=== PATIENT | male | born 1950 | race Two or more races ===

== ENCOUNTER 2020-09-07 18:20 | Inpatient (IN) | payer OTHER ==
[~2020-09-07] VITALS: Ht 162.6 cm; Wt 75.0 kg
[2020-09-07] MEDS ORDERED: SODIUM CHLORIDE FLUSH 10ML SYR IVF ONE (18:30)
--- NOTE | 2020-09-07 18:43 | NUR ---
to and from ct. back, daughter at bedside. vss. per cait: pt's father of covid, he was exposed. having trouble walking/talking, more fatigue, not acting himself. got aspirin by family 162 mg 1.5 hours prior to this. md aware of temp plan for straight cath ua. as
--- NOTE | 2020-09-07 18:55 | NUR ---
REPORT TO RODO BACON.
[2020-09-07] MEDS ORDERED: ASPI-515 PO (18:57)
[2020-09-07] MEDS ORDERED: ACETAMINOPHEN 650 MG SUPP PR PRN (19:00)
--- NOTE | 2020-09-07 19:02 | NUR ---
per daughter pt barely voiding, c/o low back pain, sts is drinking fluids at home. as
[2020-09-07] MEDS ORDERED: ACETAMINOPHEN 325 MG SUPP ONE (19:09)
[2020-09-07 19:21] LABS: BASOPHILS % (AUTO) 1 % (0-1); EOSINOPHILS % (AUTO) 0 % (1-7); LYMPHOCYTES % (AUTO) 14 % (22-44); MEAN CORPUSCULAR HEMOGLOBIN 30.3 pg (27.5-34.5); MEAN CORPUSCULAR HGB CONC 34.4 g/dL (33.2-36.2); MEAN PLATELET VOLUME 11.7 fL (7.4-10.4); MONOCYTES % (AUTO) 11 % (2-9); NEUTROPHILS % (AUTO) 74 % (42-75); PLATELET COUNT 106 x10^3/uL (130-400); RED BLOOD COUNT 5.33 x10^6/uL (4.38-5.82); RED CELL DISTRIBUTION WIDTH 12.5 % (9.4-14.8)
[2020-09-07 19:28] LABS: INTERNATIONAL NORMALIZED RATIO 1.06 (0.93-1.1); PROTHROMBIN TIME 11.2 Seconds (9.6-11.5)
[2020-09-07 19:29] LABS: ALANINE AMINOTRANSFERASE 62 U/L (12-78); ALBUMIN 3.2 g/dL (3.4-5.0); ANION GAP 9 mmol/L (5-15); CALCIUM 8.8 mg/dL (8.5-10.1); CHLORIDE 100 mmol/L (98-107); CREATININE 1.08 mg/dL (0.7-1.3); TRIGLYCERIDES 127 mg/dL (50-200)
[2020-09-07 19:32] LABS: ALKALINE PHOSPHATASE 104 U/L (45-117); BILIRUBIN,TOTAL 1.1 mg/dL (0.2-1.0); TOTAL PROTEIN 8.3 g/dL (6.4-8.2)
[2020-09-07 19:35] LABS: MICROSCOPIC AUTO
--- NOTE | 2020-09-07 19:35 | NUR ---
DAUGHTER SPOKE TO HER SISTER AND PT HAS BEEN VOIDING FREQUENTLY AND HAS BEEN HAVING INCONTINENCE DUE TO URGENCY. PT STRAIGHT CATHED AND 400 MLS WAS DRAINED. PT MEDICATED WITH TYLENOL AND SAMPLE WALKED TO LAB. PTS BP IS ELEVATED. PER FAMILY THAT IS NORMAL BUT HE DOESNT TAKE MEDICATION FOR IT. PT RESTING WITH NO NEEDS AT THIS TIME. CALL LIGHT IN REACH
[2020-09-07 20:10] LABS: MD MORPH REVIEW ONLY
[2020-09-07 20:11] LABS: <PLATELET ESTIMATE> DECREASED; <RBC MORPHOLOGY> NORMAL; LARGE PLATELETS 1+
--- NOTE | 2020-09-07 20:28 | NUR ---
UPDATED PT AND FAMILY THAT PT WILL GO FOR CT. LABS STILL PENDING. PT RESTING IN NAD. CALL LIGHT IN REACH
[2020-09-07] MEDS ORDERED: CEFTRIAXONE PMX 1GM/50ML 50 ML ONE (21:22)
[2020-09-07] MEDS ORDERED: hydrALAzine 20 MG/ML, 1ML IV ONE (21:30)
[2020-09-07] MEDS ORDERED: AZITHROMYCIN 500 MG in SODIUM CHLORIDE 0.9% 250 ML IV ONE (21:30)
[2020-09-07] MEDS ORDERED: CEFTRIAXONE PMX 1GM/50ML 50 ML IV ONE (21:30)
[2020-09-07] MEDS ORDERED: SODIUM CHLORIDE 0.9%, 500ML IVBOLUS ONE (21:30)
--- NOTE | 2020-09-07 21:46 | NUR ---
REPORT FROM RODO BACON ASSUMING CARE AT THIS TIME
[2020-09-07] MEDS ORDERED: OMNIPAQUE 350 MG/ML, 100ML BOTTLE ONE (21:51)
--- NOTE | 2020-09-07 21:58 | NUR ---
PT MEDICATED. ABX RUNNING. REPORT TO KEVIN BACON.
--- NOTE | 2020-09-07 21:59 | NUR ---
DAUGHTER RUBIO PHONE #[phone] DAUGHTER ANKITA PHONE # [phone]
--- NOTE | 2020-09-07 22:04 | NUR ---
COVID SWAB COMPLETED AND WALKED TO LAB AT THIS TIME. PT RESTING ON KIM BARCENAS
--- NOTE | 2020-09-07 22:45 | NUR ---
ZITHROMAX STARTED AT THIS TIME. PT RESTING ON GURNEY NADN, RESP EVEN AND UNLABORED EYES CLOSED, NO NEEDS AT THIS TIME
[2020-09-07] MEDS ORDERED: GUAIFENESIN/DM 200-20MG, 10ML UDC PO PRN (23:00)
[2020-09-07] MEDS ORDERED: DOCUSATE 100 MG CAPSULE PO PRN (23:00)
[2020-09-07] MEDS: HEPARIN 5,000 UNITS/ML, 1ML SQ SCH (23:00)
--- NOTE | 2020-09-08 00:33 | NUR ---
PT RESTING ON KIM BARCENAS NO NEEDS AT THIS TIME
--- NOTE | 2020-09-08 01:11 | NUR ---
REPORT TO LI BACON TRANSFER OF CARE AT THIS TIME
--- NOTE | 2020-09-08 02:39 | NUR ---
TASK RN: PT RESTING ON KIM RESP NICHOLAS AND UNLABORED NARINDER
[2020-09-08 04:08] VITALS: BP 211/95
[2020-09-08] MEDS: ENALAPRILAT 1.25 MG/ML, 2ML IVPush PRN (04:48)
[2020-09-08 05:18] LABS: BASOPHILS % (AUTO) 1 % (0-1); EOSINOPHILS % (AUTO) 0 % (1-7); LYMPHOCYTES % (AUTO) 31 % (22-44); MEAN CORPUSCULAR HEMOGLOBIN 30.5 pg (27.5-34.5); MEAN CORPUSCULAR HGB CONC 34.5 g/dL (33.2-36.2); MEAN PLATELET VOLUME 12.1 fL (7.4-10.4); MONOCYTES % (AUTO) 11 % (2-9); NEUTROPHILS % (AUTO) 57 % (42-75); PLATELET COUNT 105 x10^3/uL (130-400); RED BLOOD COUNT 5.66 x10^6/uL (4.38-5.82); RED CELL DISTRIBUTION WIDTH 12.7 % (9.4-14.8)
[2020-09-08 05:30] LABS: ALANINE AMINOTRANSFERASE 57 U/L (12-78); ANION GAP 10 mmol/L (5-15); CALCIUM 8.9 mg/dL (8.5-10.1); CHLORIDE 104 mmol/L (98-107); CREATININE 0.85 mg/dL (0.7-1.3)
[2020-09-08 05:33] LABS: ALKALINE PHOSPHATASE 101 U/L (45-117); BILIRUBIN,TOTAL 0.8 mg/dL (0.2-1.0); TOTAL PROTEIN 8.2 g/dL (6.4-8.2)
[2020-09-08 05:46] VITALS: BP 155/89
[2020-09-08 05:48] LABS: MD NO
[2020-09-08] MEDS ORDERED: HEPARIN 5,000 UNITS/ML, 1ML ONE ×2 (06:15→15:55)
[2020-09-08] MEDS: HEPARIN 5,000 UNITS/ML, 1ML SQ SCH ×3 (06:28→23:17)
[2020-09-08] MEDS ORDERED: ASPIRIN 81 MG TABLET EC ONE (07:48)
--- NOTE | 2020-09-08 08:30 | NUR ---
ASSISTED PT TO HOSPITAL BED FOR COMFORT, CLEANED UP PT.
[2020-09-08] MEDS: ASPIRIN 81 MG TABLET EC PO SCH (08:53)
[2020-09-08] MEDS: INSULIN LISPRO 100 UNITS/ML, PEN SQ-INSULIN SCH ×4 (08:53→21:25)
--- NOTE | 2020-09-08 09:04 | NUR ---
MEDICATED PER ORDERS, BS 260, PT ON HOSPITAL BED, CLEANED, NEW GOWN, VSS.
--- NOTE | 2020-09-08 10:00 | NUR ---
PT COMPLETED BREAKFAST TRAY 100%. VOIDED 200 ML IN URINAL , VSS
--- NOTE | 2020-09-08 11:12 | NUR ---
PT GIVEN WATER AND WARM BLANKET, VSS.
--- NOTE | 2020-09-08 12:38 | NUR ---
LUNCH PROVIDED, ADMIN MEDS PER ORDER
[2020-09-08] MEDS ORDERED: ACETAMINOPHEN 325 MG TABLET ONE (17:32)
[2020-09-08] MEDS: ACETAMINOPHEN 325 MG TABLET PO PRN (17:46)
--- NOTE | 2020-09-08 18:47 | NUR ---
Desiree jarquin in ED - 09/08/20 at 1849 by STAR BEDSIDE REPORT FROM PERLITA BACON, PT CARE TRANSFERRED AT THIS TIME.
--- NOTE | 2020-09-08 18:49 | NUR ---
BEDSIDE REPORT FROM JUANA BACON, PT CARE TRANSFERRED AT THIS TIME. PREVIOUS NOTE ON INCORRECT PT
--- NOTE | 2020-09-08 19:12 | NUR ---
PT RESTING ON GURNEY, APPEARS COMFORTABLE, BLANKETS CLEANED AND REARRANGED, NAD, PROVIDED MEAL TO EAT FOR DINNER, DENIES ADDITIONAL QUESTIONS AT THIS TIME, BED IN LOWEST, CALL LIGHT ON LAP, WATCHING TV. WCTM. WAITING FOR ADMIT BED.
[2020-09-08] MEDS ORDERED: AZITHROMYCIN 500 MG TABLET ONE (19:52)
[2020-09-08] MEDS ORDERED: IBUPROFEN 200 MG TABLET ONE (19:52)
[2020-09-08] MEDS ORDERED: CEFTRIAXONE PMX 1GM/50ML 50 ML ONE (19:52)
[2020-09-08] MEDS ORDERED: IBUPROFEN 200 MG TABLET PO PRN (20:00)
--- NOTE | 2020-09-08 20:17 | NUR ---
REPORT CALLED TO ARACELI BACON, PT CARE TO BE TRANSFERRED UPON ARRIVAL TO THE FLOOR. PT NAD, MEDICATED PER DEC FOR FEVER, APPEARS COMFORTABLE. WCTM.
[2020-09-08] MEDS ORDERED: AZITHROMYCIN 250 MG TABLET ONE (20:33)
[2020-09-08] MEDS: AZITHROMYCIN 250 MG TABLET PO SCH (20:34)
[2020-09-08] MEDS: CEFTRIAXONE PMX 1GM/50ML 50 ML IV SCH (20:35)
[2020-09-08 21:57] VITALS: BP 148/84
[2020-09-09] MEDS ORDERED: POTASSIUM CHLORIDE 20 MEQ TAB.ER.PRT PO ONE
[2020-09-09 01:12] VITALS: BP 143/88
[2020-09-09 02:09] LABS: RAPID INFLUENZA A Negative (Negative); RAPID INFLUENZA B Negative (Negative)
[2020-09-09 04:12] LABS: BASOPHILS % (AUTO) 1 % (0-1); EOSINOPHILS % (AUTO) 1 % (1-7); LYMPHOCYTES % (AUTO) 28 % (22-44); MEAN CORPUSCULAR HEMOGLOBIN 30.5 pg (27.5-34.5); MEAN CORPUSCULAR HGB CONC 34.5 g/dL (33.2-36.2); MEAN PLATELET VOLUME 12.2 fL (7.4-10.4); MONOCYTES % (AUTO) 10 % (2-9); NEUTROPHILS % (AUTO) 60 % (42-75); PLATELET COUNT 108 x10^3/uL (130-400); RED BLOOD COUNT 4.97 x10^6/uL (4.38-5.82); RED CELL DISTRIBUTION WIDTH 12.5 % (9.4-14.8)
[2020-09-09 04:17] LABS: MD NO
[2020-09-09 04:21] LABS: ANION GAP 7 mmol/L (5-15); CALCIUM 8.8 mg/dL (8.5-10.1); CHLORIDE 101 mmol/L (98-107); CREATININE 1.01 mg/dL (0.7-1.3)
[2020-09-09] MEDS ORDERED: THIAMINE 100MG TABLET PO ONE (07:00)
[2020-09-09 07:48] VITALS: BP 150/83
[2020-09-09] MEDS: INSULIN LISPRO 100 UNITS/ML, PEN SQ-INSULIN SCH ×4 (07:59→21:23)
[2020-09-09] MEDS: HEPARIN 5,000 UNITS/ML, 1ML SQ SCH ×3 (07:59→22:45)
[2020-09-09] MEDS: ASCORBIC ACID 500 MG TABLET PO SCH ×2 (08:00→16:02)
[2020-09-09] MEDS: ZINC SULFATE 220 MG CAPSULE PO SCH (08:00)
[2020-09-09] MEDS: POTASSIUM CHLORIDE 20 MEQ PACKET PO SCH ×3 (08:00→16:02)
[2020-09-09] MEDS: ASPIRIN 81 MG TABLET EC PO SCH (08:00)
[2020-09-09] MEDS: CHOLECALCIFEROL 5,000u TAB PO SCH (08:00)
[2020-09-09 08:37] LABS: D-DIMER 0.46 ug/mlFEU (0.00-0.52); INTERNATIONAL NORMALIZED RATIO 1.05 (0.93-1.1); PROTHROMBIN TIME 11.1 Seconds (9.6-11.5)
[2020-09-09 08:38] LABS: C-REACTIVE PROTEIN, QUANT 5.8 mg/dL (0.02-0.49)
[2020-09-09 13:01] VITALS: BP 184/108
[2020-09-09] MEDS: ENALAPRILAT 1.25 MG/ML, 2ML IVPush PRN (13:19)
[2020-09-09 14:00] VITALS: BP 155/85
[2020-09-09] MEDS: ACETAMINOPHEN 325 MG TABLET PO PRN (16:05)
[2020-09-09 21:00] VITALS: BP 158/82
[2020-09-09] MEDS: AZITHROMYCIN 250 MG TABLET PO SCH (21:21)
[2020-09-09] MEDS: CEFTRIAXONE PMX 1GM/50ML 50 ML IV SCH (21:21)
[2020-09-09] MEDS: INSULIN GLARGINE 100 UNITS/ML, PEN SQ-INSULIN SCH (22:45)
[2020-09-10 02:15] VITALS: BP 134/86
[2020-09-10 04:30] LABS: ANION GAP 5 mmol/L (5-15); CALCIUM 8.7 mg/dL (8.5-10.1); CHLORIDE 107 mmol/L (98-107)
[2020-09-10 04:31] LABS: CREATININE 0.87 mg/dL (0.7-1.3)
[2020-09-10 04:32] LABS: BASOPHILS % (AUTO) 0 % (0-1); EOSINOPHILS % (AUTO) 2 % (1-7); LYMPHOCYTES % (AUTO) 29 % (22-44); MEAN CORPUSCULAR HEMOGLOBIN 30.6 pg (27.5-34.5); MEAN CORPUSCULAR HGB CONC 34.3 g/dL (33.2-36.2); MEAN PLATELET VOLUME 12.9 fL (7.4-10.4); MONOCYTES % (AUTO) 10 % (2-9); NEUTROPHILS % (AUTO) 59 % (42-75); PLATELET COUNT 118 x10^3/uL (130-400); RED BLOOD COUNT 4.88 x10^6/uL (4.38-5.82); RED CELL DISTRIBUTION WIDTH 12.6 % (9.4-14.8)
[2020-09-10 05:21] LABS: ANISOCYTOSIS 1+; MD MORPH REVIEW ONLY
[2020-09-10 05:22] LABS: <PLATELET ESTIMATE> DECREASED; <PLT MORPHOLOGY> NORMAL PLT MORPH; GIANT PLATELETS 1+; LARGE PLATELETS 1+
[2020-09-10] MEDS: ACETAMINOPHEN 325 MG TABLET PO PRN ×2 (06:12→15:25)
[2020-09-10] MEDS: INSULIN LISPRO 100 UNITS/ML, PEN SQ-INSULIN SCH ×4 (07:00→20:52)
[2020-09-10] MEDS ORDERED: MAGNESIUM SULFATE PMX 2GM/50ML 50 ML IV ONE (07:00)
[2020-09-10] MEDS: AZITHROMYCIN 250 MG TABLET PO SCH (07:40)
[2020-09-10] MEDS: ASPIRIN 81 MG TABLET EC PO SCH (07:40)
[2020-09-10] MEDS: ZINC SULFATE 220 MG CAPSULE PO SCH (07:40)
[2020-09-10] MEDS: ASCORBIC ACID 500 MG TABLET PO SCH ×2 (07:40→17:08)
[2020-09-10] MEDS: POTASSIUM CHLORIDE 20 MEQ PACKET PO SCH ×3 (07:40→17:09)
[2020-09-10] MEDS: CHOLECALCIFEROL 5,000u TAB PO SCH (07:40)
[2020-09-10] MEDS: HEPARIN 5,000 UNITS/ML, 1ML SQ SCH ×2 (07:41→17:09)
[2020-09-10 07:46] VITALS: BP 172/83
[2020-09-10 12:38] VITALS: BP 182/93
[2020-09-10] MEDS: ENALAPRILAT 1.25 MG/ML, 2ML IVPush PRN (17:09)
[2020-09-10 17:30] VITALS: BP 160/91
[2020-09-10 20:00] VITALS: BP 150/70
[2020-09-10] MEDS: INSULIN GLARGINE 100 UNITS/ML, PEN SQ-INSULIN SCH (20:52)
[2020-09-10] MEDS: CEFTRIAXONE PMX 1GM/50ML 50 ML IV SCH (20:53)
[2020-09-11] MEDS: HEPARIN 5,000 UNITS/ML, 1ML SQ SCH ×3 (01:07→15:24)
[2020-09-11] MEDS: ENALAPRILAT 1.25 MG/ML, 2ML IVPush PRN (01:09)
[2020-09-11 01:30] VITALS: BP 172/82
[2020-09-11] MEDS: ACETAMINOPHEN 325 MG TABLET PO PRN (04:37)
[2020-09-11 04:48] LABS: BASOPHILS % (AUTO) 1 % (0-1); EOSINOPHILS % (AUTO) 2 % (1-7); LYMPHOCYTES % (AUTO) 24 % (22-44); MEAN CORPUSCULAR HEMOGLOBIN 30.5 pg (27.5-34.5); MEAN CORPUSCULAR HGB CONC 34.2 g/dL (33.2-36.2); MEAN PLATELET VOLUME 12.2 fL (7.4-10.4); MONOCYTES % (AUTO) 10 % (2-9); NEUTROPHILS % (AUTO) 63 % (42-75); PLATELET COUNT 123 x10^3/uL (130-400); RED BLOOD COUNT 4.58 x10^6/uL (4.38-5.82); RED CELL DISTRIBUTION WIDTH 12.4 % (9.4-14.8)
[2020-09-11 05:00] LABS: ANION GAP 4 mmol/L (5-15); CALCIUM 8.9 mg/dL (8.5-10.1); CHLORIDE 108 mmol/L (98-107)
[2020-09-11 05:56] LABS: MD SCAN
[2020-09-11 07:32] VITALS: BP 153/85
[2020-09-11] MEDS: INSULIN LISPRO 100 UNITS/ML, PEN SQ-INSULIN SCH ×3 (07:56→15:51)
[2020-09-11] MEDS: POTASSIUM CHLORIDE 20 MEQ PACKET PO SCH ×3 (09:05→16:21)
[2020-09-11] MEDS: ASCORBIC ACID 500 MG TABLET PO SCH (09:08)
[2020-09-11] MEDS: ASPIRIN 81 MG TABLET EC PO SCH (09:08)
[2020-09-11] MEDS: AZITHROMYCIN 250 MG TABLET PO SCH (09:09)
[2020-09-11] MEDS: CHOLECALCIFEROL 5,000u TAB PO SCH (09:09)
[2020-09-11] MEDS: ZINC SULFATE 220 MG CAPSULE PO SCH (09:09)
[2020-09-11 12:32] VITALS: BP 163/91
[2020-09-11] MEDS ORDERED: LISINOPRIL 10 MG TABLET PO SCH (15:00)
[2020-09-11] MEDS ORDERED: CHOL500045 PO (15:10)
[2020-09-11] MEDS ORDERED: INSU100I13 SQ-INSULIN (15:10)
[2020-09-11] MEDS ORDERED: ASCO500T9 PO (15:10)
[2020-09-11] MEDS ORDERED: LISI-167 PO (15:14)
[2020-09-11] MEDS ORDERED: DOXY100T PO (15:14)
[2020-09-11] MEDS ORDERED: CEFD300C37 PO (15:14)
[2020-09-11] MEDS ORDERED: FLU VACC QS2020-21(6MOS UP)/PF 60MCG/0.5 ML SYR IM ONE (18:00)
== END 2020-09-11 18:48 | disposition home or self-care (01) | DRG 177 ==
LOC: ED 22:57 → EDIP 23:00 → 4WST 09-08 20:50
PROVIDERS: ADMIT Family Medicine; ATTEND Hospitalist
DX: U07.1 COVID-19 (principal); J12.89 Other viral pneumonia; E87.1 Hypo-osmolality and hyponatremia; E11.65 Type 2 diabetes mellitus with hyperglycemia; I10 Essential (primary) hypertension; M47.9 Spondylosis, unspecified; E87.6 Hypokalemia; Z79.4 Long term (current) use of insulin; Z23 Encounter for immunization
CPT/HCPCS: 36415; 70450; 71045; 71260; 74177; 80048; 80053; 81001; 82728; 82962; 83036; 83605; 83615; 83735; 83880; 84100; 84145; 84478; 85025; 85379; 85384; 85610; 85730; 86140; 87040; 87070; 87205; 87400; 90686; 93005; G0378; J0456; J0696; J1644; Q9967; J0360; J1815; J3475; J7040; J7050; U0003